=== PATIENT | female | born 1965 | race African-American/Black ===

== ENCOUNTER 2017-07-09 06:09 | Day surgery (SDC) | payer OTHER ==
[2017-07-09] MEDS ORDERED: Dexamethasone 20 MG/5 ML VIAL ONE (07:16)
[2017-07-09] MEDS ORDERED: Lidocaine 1% PF 5 ML VIAL ONE (07:16)
[2017-07-09] MEDS ORDERED: PROPOFOL 200 MG/20 ML VIAL ONE (07:16)
[2017-07-09] MEDS ORDERED: Ketorolac Tromethamine 30 MG/ML VIAL ONE (07:16)
[2017-07-09 08:18] LABS: Hemoglobin 12.4 g/dL (12.0-16.0); Mean Corpuscular HGB CONC 33.1 g/dL (32.0-36.0); Mean Corpuscular Hemoglobin 28.5 pg (27.0-31.0); Mean Platelet Volume 7.1 fL (7.4-10.4); Platelet Count 242 thou/uL (130-400); Red Blood Cell (RBC) Count 4.34 mill/uL (4.20-5.40); White Blood Cell (WBC) Count 4.2 thou/uL (4.8-10.8)
[2017-07-09] MEDS ORDERED: CEFAZOLIN/Water 2 GM/20 ML SYRINGE ONE (08:51)
[2017-07-09] MEDS ORDERED: Fentanyl 100 MCG/2 ML VIAL ONE (09:11)
[2017-07-09] MEDS ORDERED: Midazolam HCl 2 mg/2 ml Vial ONE (09:11)
[2017-07-09] MEDS ORDERED: Clindamycin/D5W 600 mg/50 ml Premix Bag ONE (09:18)
[2017-07-09] MEDS ORDERED: Bupivacaine/Epinephrine 0.25% 30 ML VIAL ONE (09:38)
--- NOTE | 2017-07-09 10:23 | OP ---
DATE OF PROCEDURE: 07/09/2017 PREOPERATIVE DIAGNOSIS: Right carpal tunnel syndrome. POSTOPERATIVE DIAGNOSIS: Right carpal tunnel syndrome. PROCEDURE PERFORMED: 1. Right open carpal tunnel release. 2. Placement in arm splint. STAFF: Johny Gonzalez M.D. TEACHER LEARNING DISABLED: None. ANESTHESIA: Portillo. The patient received an LMA with 10 mL, 0.25% Marcaine with epinephrine. ANTIBIOTICS: Clindamycin 600. TOURNIQUET TIME: 9 minutes at 250 mmHg. IMPLANTS: None. COMPLICATIONS: None. HISTORY OF PRESENT ILLNESS: Ms. Figueroa 52-year-old female with bilateral carpal tunnel by nerve conduction studies and symptoms. The patient had over a year of symptoms. The patient had failed conservative measures with bracing as well as therapy and she desired to proceed with a right open carpal tunnel release. I discussed with her the risks and benefits of surgery, pain, scar, bleeding, infection, damage to vital structures, decreased range of motion, strength, failure of procedure, continued pain despite surgical intervention, loss of life or limb. The patient understood the risks and benefits of procedure and elected to proceed. PROCEDURE NOTE: Time-out was performed designating the patient's right upper extremity as the operative site based on site, consents and markings. After completion of timeout, the patient's tourniquet was brought up for a total of 9 minutes. Incision was made in the patient's thenar crease proximal to Jenkins's cardinal line down through skin and fat to the palmar fascia. Palmar fascia was transected in line using a hemostat to protect any deep structures, came down to the palmaris brevis, which was cut and came to the transverse carpal ligament which was protected with a hemostat, a knife during sharp dissection to expose the entire nerve which we used a highest to help exposure with exposure as well as used a Ragnell to hold the exposed, ensure that I had a complete release. Was able to stick an entire finger into the patient's distal wrist to ensure that I had complete release of transverse carpal ligament. I was happy with my decompression. I washed, closed, let down over 9 minutes, controlled the superficial skin bleeders. No deep bleeding within. I closed with 3-0 nylon horizontal mattress stitches and one simple injected the remainder of 7 mL of Marcaine. Afterwards I had done a wrist block and a skin incision injection and put the remaining 7 mL in and closed the incision. The patient was placed in a volar splint. The patient will follow up with me in about a 7-12 days for followup, removal of splint and suture removal. KACIE
== END 2017-07-09 11:15 | disposition home or self-care (01) ==
LOC: SDC 06:09
PROVIDERS: ATTEND Orthopaedic Surgery
PROC: 01N50ZZ Release Median Nerve, Open Approach (ICD-10-PCS; principal; 2017-07-09)
DX: G56.01 Carpal tunnel syndrome, right upper limb (principal); Z88.0 Allergy status to penicillin; Z88.8 Allergy status to other drugs, medicaments and biological substances
CPT/HCPCS: 36415; 85027; J1100; J1885; J2001; J2250; J2704; J3010; J3490